=== PATIENT | male | born 1945 | race Hispanic/Latino ===

== ENCOUNTER → 2017-11-30 | Outpatient (CLI) | payer OTHER ==
[~2017-11-30] MED LIST: ASPI-555 PO; BENZ-51 PO; CETI10TA57 PO; FLOVENT HFA IH; FOSI40TA2 PO; GLIP10TA9 PO; METF10004 PO; METO100T14 PO; MULT-1258 PO; OMEP-272 PO; PRED5TAB PO; REGADENOSON 0.4 MG/5 ML PF SYG IVP SCH; TICA90TA PO; UMEC1DIS IH
== END ==
LOC: SHCH 08:48
PROVIDERS: ATTEND Internal Medicine Cardiovascular Disease
DX: Z95.1 Presence of aortocoronary bypass graft (principal); I25.10 Atherosclerotic heart disease of native coronary artery without angina pectoris
CPT/HCPCS: 78452; 93017; 96374; A9500 ×2; J2785

== ENCOUNTER 2017-12-17 06:45 | Day surgery (SDC) | payer OTHER ==
[2017-12-15 10:56] VITALS: BP 111/62
[2017-12-15 11:15] LABS: BASOPHILS % (AUTO) 0.7 % (0.0-5.0); EOSINOPHILS % (AUTO) 1.5 % (0.0-8.0); HEMATOCRIT 39.9 % (42-54); LYMPHOCYTES % (AUTO) 18.7 % (21.0-51.0); MEAN CORPUSCULAR HEMOGLOBIN 28.8 pg (27.0-33.0); MEAN CORPUSCULAR HGB CONC 33.9 g/dL (32.0-36.0); MEAN CORPUSCULAR VOLUME 85.1 fL (79-99); MONOCYTES % (AUTO) 7.8 % (3.0-13.0); NEUTROPHILS % (AUTO) 71.3 % (40.0-77.0); PLATELET COUNT (AUTO) 225 K/uL (130-400); WHITE BLOOD COUNT (AUTO) 10.2 K/uL (4.8-10.8)
[2017-12-15 11:18] LABS: APPEARANCE,URINE Clear (CLEAR); BILIRUBIN,URINE Negative (NEGATIVE); COLOR,URINE Yellow (YELLOW); GLUCOSE, URINE (UA) 500 mg/dL (NEGATIVE); KETONES,URINE Trace mg/dL (NEGATIVE); LEUKOCYTE ESTERASE ,URINE Trace (NEGATIVE); NITRATE,URINE Negative (NEGATIVE); OCCULT BLOOD,URINE Negative (NEGATIVE); PH,URINE 5.5 (5.0-8.0); PROTEIN,URINE Trace (NEGATIVE)
[2017-12-15 11:22] LABS: CREATININE 1.2 mg/dL (0.5-1.5); POTASSIUM 4.6 mmol/L (3.5-5.1)
[2017-12-15 12:04] LABS: INR 1.08 (0.85-1.15); PARTIAL THROMBOPLASTIN TIME 26.5 SEC (26.3-35.5); PROTHROMBIN TIME 11.3 SEC (9.6-11.6)
[2017-12-15 12:27] LABS: BACTERIA,URINE None Seen /HPF (None Seen); RBC,URINE 0-1 /HPF (0-1); WBC,URINE 0-1 /HPF (0-1)
[2017-12-17] VITALS (13 sets, daily range): BP systolic 118–178; BP diastolic 63–96
[~2017-12-17] VITALS: Ht 172.7 cm; Wt 102.3 kg
[~2017-12-17 06:45] MED LIST changes: -REGADENOSON 0.4 MG/5 ML PF SYG IVP SCH; +SODIUM CHLORIDE 0.9% 500ML 500 ML IV SCH; -TICA90TA PO
[2017-12-17] MEDS ORDERED: SODIUM CHLORIDE 0.9% 1000ML 1,000 ML IV ONE (07:13)
[2017-12-17] MEDS ORDERED: IOPAMIDOL-370 100 ML VIAL IV ONE (07:29)
[2017-12-17] MEDS ORDERED: NITROGLYCERIN 5 MG/ML 10 ML VIAL IV ONE (07:29)
[2017-12-17] MEDS ORDERED: BIVALIRUDIN 250 MG/VIAL IV ONE (07:29)
[2017-12-17] MEDS ORDERED: ISOVUE-370 50ML VIAL IV ONE (07:29)
[2017-12-17] MEDS ORDERED: LIDOCAINE HCL 2% 20ML ONE (07:30)
[2017-12-17] MEDS ORDERED: IOPAMIDOL-370 75 ML VIAL IV ONE ×2 (07:30→09:33)
[2017-12-17] MEDS ORDERED: LABETALOL 20 MG/4 ML DISP.SYRIN IV ONE (08:47)
[2017-12-17] MEDS ORDERED: ASPIRIN 325MG EC TAB 325 MG TABLET.DR PO ONE (09:22)
[2017-12-17] MEDS ORDERED: TICAGRELOR 90 MG TABLET ONE (09:22)
[2017-12-17] MEDS ORDERED: DEXTROSE 50%-WATER 50 ML DISP.SYRIN IV PRN (10:15)
[2017-12-17] MEDS ORDERED: GLUCAGON 1MG KIT 1 MG ML IM PRN (10:15)
[2017-12-17] MEDS ORDERED: TICA90TA PO (10:18)
[2017-12-17] MEDS ORDERED: INSULIN HUMULIN R 100 UNIT/ML 3ML SQ SCH (11:30)
== END 2017-12-17 16:05 | disposition home or self-care (01) ==
LOC: DAH 06:45
PROVIDERS: ATTEND Internal Medicine Cardiovascular Disease
DX: I25.708 Atherosclerosis of coronary artery bypass graft(s), unspecified, with other forms of angina pectoris (principal); Z95.1 Presence of aortocoronary bypass graft; I25.5 Ischemic cardiomyopathy; J84.10 Pulmonary fibrosis, unspecified; E11.9 Type 2 diabetes mellitus without complications; I10 Essential (primary) hypertension; E78.5 Hyperlipidemia, unspecified; E78.1 Pure hyperglyceridemia; R80.9 Proteinuria, unspecified; E66.9 Obesity, unspecified; J44.9 Chronic obstructive pulmonary disease, unspecified; Z87.891 Personal history of nicotine dependence; Z98.890 Other specified postprocedural states; Z79.899 Other long term (current) drug therapy; Z68.31 Body mass index [BMI] 31.0-31.9, adult; R94.39 Abnormal result of other cardiovascular function study; Z79.01 Long term (current) use of anticoagulants
CPT/HCPCS: 36415; 71045; 80048; 81001; 82948 ×2; 85025; 85610; 85730; 93005 ×2; 93459; A4606; C1725; C1760; C1769; C1874; C1887; C1894 ×2; C9600; J0583; J1644 ×2; J1815; J3490 ×2; J7030; Q9967 ×4